=== PATIENT | male | born 1990 | race Caucasian/White ===

== ENCOUNTER 2021-02-28 16:22 | Emergency (ER) | payer MEDICAID ==
[~2021-02-28] VITALS: Ht 167.6 cm; Wt 100.0 kg
[2021-02-28] MEDS ORDERED: CEPHALEXIN MONOHYDRATE 500 MG CAPSULE PO ONE (17:15)
[2021-02-28] MEDS ORDERED: PERTUSS(ACELL),DIPH,TET VAC/PF 0.5 ML SYRINGE IM. ONE (17:15)
[2021-02-28] MEDS ORDERED: SULFAMETHOX/TRIMETH DS 800-160 MG/TABLET PO ONE (17:15)
[2021-02-28] MEDS ORDERED: LIDOCAINE 1%/EPI 1:200,000/PF 30 ML VIAL SQ ONE (18:30)
[2021-02-28 19:00] VITALS: BP 139/77
== END 2021-02-28 19:41 | disposition home or self-care (01) ==
LOC: EMS 16:23
DX: L02.01 Cutaneous abscess of face (principal); L03.211 Cellulitis of face
CPT/HCPCS: 10060; 90471; 90715; 99284; J3490; 99283